=== PATIENT | female | born 1995 | race African-American/Black ===

== ENCOUNTER 2018-11-29 12:05 | Inpatient (IN) | payer OTHER ==
[2018-11-29] VITALS (7 sets, daily range): BP systolic 125–143; BP diastolic 71–87
[~2018-11-29] VITALS: Ht 172.7 cm; Wt 124.8 kg
[~2018-11-29 12:05] MED LIST: BUPIVAC MPF-EPI 0.5%-1:200000 30 ML VIAL. ONE; GLUCAGON,HUMAN RECOMBINANT 1 MG/ML VIAL. ONE; IOHEXOL 300 MG/ML 100ML VIAL. ONE; SURGICEL HEMOSTAT 4X8 EACH. ONE
[2018-11-29] MEDS ORDERED: SEVOFLURANE 61 TO 120 MINUTES. IH ONE (12:08)
[2018-11-29] MEDS ORDERED: ROCURONIUM 50 MG/5 ML VIAL. ONE (12:08)
[2018-11-29] MEDS ORDERED: LIDOCAINE 2% PF 5 ML VIAL. ONE (12:09)
[2018-11-29] MEDS ORDERED: fentaNYL PF VIAL 100 MCG/2 ML VIAL ONE ×3 (12:09→14:15)
[2018-11-29] MEDS ORDERED: MIDAZOLAM HCL/PF 2 MG/2 ML VIAL. ONE (12:09)
[2018-11-29] MEDS ORDERED: DEXAMETHASONE SOD PHOS 20 MG/5 ML VIAL. ONE (12:09)
[2018-11-29] MEDS ORDERED: GLYCOPYRROLATE 1 MG/5 ML VIAL. ONE (12:09)
[2018-11-29] MEDS ORDERED: ONDANSETRON PF 4 MG/2 ML VIAL. ONE (12:09)
[2018-11-29] MEDS ORDERED: NEOSTIGMINE METHYLSULFATE 5 MG/5 ML SYRINGE. ONE (12:09)
[2018-11-29] MEDS ORDERED: KETOROLAC 30 MG/ML INJ FOR OR. INJ ONE (12:09)
[2018-11-29] MEDS ORDERED: PROPOFOL 20 ML IV ONE (12:09)
--- NOTE | 2018-11-29 12:47 | PDOC1 ---
History and Physical Date of Admission Date of Admission DATE: 11/29/18 TIME: 12:42 Identification/Chief Complaint Chief Complaint RUQ pain, nausea Source Source: Chart review, Patient History of Present Illness History of Present Illness Trina is a 23 yo obese female with RUQ pain, nausea and an US showing cholelithiasis She is brought from [facility] ED for cholecystectomy Past Medical History Cardiovascular: No pertinent hx Pulmonary: No pertinent hx Renal/: No pertinent hx Past Surgical History Past Surgical History: No pertinent history Family History Family History: Other (mother had her GB removed at age 16) Social History Smoke: No ALCOHOL: none Drugs: None Current Medications Current Medications Current Medications Sevoflurane (Ultane) 60 ml STK-MED ONCE IH ; Start 11/29/18 at 12:08; Stop at 12:09; Status DC Rocuronium Arnold (Zemuron) 50 mg STK-MED ONCE .ROUTE ; Start 11/29/18 at 12:08 ; Stop 11/29/18 at 12:09; Status DC Fentanyl Citrate (Fentanyl 2ml Vial) 100 mcg STK-MED ONCE .ROUTE ; Start at 12:09; Stop 11/29/18 at 12:10; Status DC Neostigmine Methylsulfate (Neostigmine Methylsulfate) 5 mg STK-MED ONCE .ROUTE ; Start 11/29/18 at 12:09; Stop 11/29/18 at 12:10; Status DC Midazolam HCl (Versed) 2 mg STK-MED ONCE .ROUTE ; Start 11/29/18 at 12:09; Stop 11/29/18 at 12:10; Status DC Glycopyrrolate (Robinul) 1 mg STK-MED ONCE .ROUTE ; Start 11/29/18 at 12:09; Stop 11/29/18 at 12:10; Status DC Propofol 20 ml @ As Directed STK-MED ONCE IV ; Start 11/29/18 at 12:09; Stop 11/29 at 12:10; Status DC Lidocaine HCl (Lidocaine Pf 2% Vial) 5 ml STK-MED ONCE .ROUTE ; Start 11/29/18 at 12:09; Stop 11/29/18 at 12:10; Status DC Dexamethasone Sodium Phosphate (Decadron) 20 mg STK-MED ONCE .ROUTE ; Start 11/29 at 12:09; Stop 11/29/18 at 12:10; Status DC Ondansetron HCl (Zofran) 4 mg STK-MED ONCE .ROUTE ; Start 11/29/18 at 12:09; Stop 11/29/18 at 12:10; Status DC Ketorolac Tromethamine (Toradol For Or Only) 30 mg STK-MED ONCE INJ ; Start 11/29 at 12:09; Stop 11/29/18 at 12:10; Status DC Cefazolin Sodium/ Dextrose 50 ml @ 100 mls/hr 1X PREOP PRN IV PRIOR TO PROCEDURE; Start 11/29/18 at 12:18; Stop 11/30/18 at 12:17 Bupivacaine HCl/ Epinephrine Bitart (Sensorcain-Mpf Epi 0.5%-1:275190) 30 ml STK -MED ONCE .ROUTE ; Start 11/29/18 at 11:29; Stop 11/29/18 at 12:29; Status DC Glucagon (Glucagen) 1 mg STK-MED ONCE .ROUTE ; Start 11/29/18 at 11:29; Stop 11/29 at 12:29; Status DC Iohexol (Omnipaque 300 Mg/ml) 100 ml STK-MED ONCE .ROUTE ; Start 11/29/18 at 11: 29; Stop 11/29/18 at 12:29; Status DC Cellulose (Surgicel Hemostat 4x8) 1 each STK-MED ONCE .ROUTE ; Start 11/29/18 at 11:29; Stop 11/29/18 at 12:30; Status DC Allergies Allergies: Coded Allergies: No Known Drug Allergies (Unverified , 11/29/18) ROS Gastrointestinal: Yes Nausea, Yes Vomiting, Yes Abdominal Pain Physical Exam General: Alert, Oriented X3, No acute distress HEENT: Atraumatic Lungs: Normal air movement Heart: RRR Abdomen: Soft, Other (minimally TTP in the RUQ) Skin: Other (warm, dry) Vitals Vitals Vital Signs Date Time Temp Pulse Resp B/P (MAP) Pulse Ox O2 Delivery O2 Flow Rate FiO2 11/29/18 12:28 98.1 78 15 145/88 98 Room Air 98.1 Labs Labs done at [facility] showed nl CBC, BMP, LFT's and lipase Images Images US done at [facility] is reviewed VTE Prophylaxis Ordered VTE Prophylaxis Devices: Yes VTE Pharmacological Prophylaxi: No Assessment/Plan Assessment/Plan symptomatic cholelithiasis explained risks of l/s kj including but not limited to bleeding, infection, injury to bowel, liver or bile ducts with need for further surgery, possible open procedure or diarrhea post op, also possible persistent sx despite cholecystectomy she will proceed d/w her mother at bedside SAIDA BAUGH MD Nov 29, 2018 12:47
[2018-11-29] MEDS ORDERED: hydrALAZINE 20 MG/ML VIAL. ONE (13:25)
[2018-11-29] MEDS ORDERED: ESMOLOL 100 MG/10 ML VIAL. IVP ONE (13:37)
--- NOTE | 2018-11-29 13:44 | RAD ---
EXAM: Intraoperative cholangiogram. HISTORY: Cholecystectomy. COMPARISON: None. FINDINGS: 3 fluoroscopic images were obtained during an intraoperative cholangiogram. The total fluoroscopy time is 0.16 minutes. There is contrast opacification of the biliary tree and proximal duodenum. There is no evidence of a retained stone or stricture. IMPRESSION: Intraoperative cholangiogram without evidence of a retained stone or stricture. Electronically signed by: Sammie Park MD (11/29/2018 1:41 PM) [place] [id number]
--- NOTE | 2018-11-29 14:10 | PDOC ---
BRIEF OPERATIVE NOTE Date: Nov 29, 2018 Pre-Op Diagnosis symptomatic cholelithiasis Post-Op Diagnosis same, with abdominal adhesions Procedure Performed l/s BIMAL hendrickson Surgeon Juan Carlos [employer] Establishment Manager Keira JIMENEZ Anesthesia Type: General Blood Loss 25cc IV Fluid 1000cc Specimens Obtained GB Findings subacute cholecystitis, multiple stones, omental adhesions in the RUQ, uterine adhesions in the pelvis Complications none SAIDA BAUGH MD Nov 29, 2018 14:10
[2018-11-29] MEDS ORDERED: DEXTROSE 50% 25 GM / 50ML DISP.SYRIN. IV PRN (14:15)
[2018-11-29] MEDS ORDERED: HYDROmorphone 2 MG/ML VIAL IV PRN ×2 (14:15→14:30)
[2018-11-29] MEDS ORDERED: 0.9 % SODIUM CHLORIDE 10 ML DISP.SYRIN. IV PRN (14:15)
[2018-11-29] MEDS ORDERED: oxyCODONE/APAP 5/325 1 TAB TABLET PO PRN (14:15)
[2018-11-29] MEDS ORDERED: ONDANSETRON PF 4 MG/2 ML VIAL. IV PRN ×2 (14:15→14:30)
[2018-11-29] MEDS ORDERED: diphenhydrAMINE HCL 25 MG CAPSULE PO PRN (14:15)
[2018-11-29] MEDS ORDERED: PROCHLORPERAZINE 10 MG/2 ML VIAL. ONE (14:16)
[2018-11-29] MEDS: fentaNYL PF VIAL 100 MCG/2 ML VIAL IV PRN ×2 (14:23→14:57)
[2018-11-29] MEDS: IV RINGERS,LACTATED 1000ML 1,000 ML IV SCH ×2 (14:24→14:26)
[2018-11-29] MEDS ORDERED: fentaNYL PF VIAL 100 MCG/2 ML VIAL IV PRN (14:30)
[2018-11-29] MEDS ORDERED: PROCHLORPERAZINE 10 MG/2 ML VIAL. IV PRN (14:30)
[2018-11-29] MEDS ORDERED: LIDOCAINE 1% PF 2 ML VIAL. ID PRN (14:30)
[2018-11-29] MEDS ORDERED: MORPHINE SULFATE 2 MG/ML VIAL. IV PRN (14:30)
[2018-11-29] MEDS: POTASSIUM CL 20MEQ-0.45% NACL 1,000 ML IV SCH (15:18)
--- NOTE | 2018-11-29 17:32 | OP ---
DATE OF SURGERY: 11/29/2018 PREOPERATIVE DIAGNOSIS: Symptomatic cholelithiasis. POSTOPERATIVE DIAGNOSIS: Symptomatic cholelithiasis with abdominal adhesions. PROCEDURES: Laparoscopic cholecystectomy with cholangiogram, lysis of adhesions. SURGEON: Andrea Baugh MD [employer] MEMBER: BARBARA Harmon ANESTHESIA: General endotracheal. ESTIMATED BLOOD LOSS: 25 mL. IV FLUIDS: 1 liter. INDICATIONS: The patient is a 23-year-old obese female with epigastric and right upper quadrant pain. Ultrasound shows stones. She is brought for cholecystectomy. OPERATIVE FINDINGS: The liver was generous, smooth, and sharp, gallbladder had multiple stones. Cholangiograms were normal. There were omental adhesions in the right upper quadrant to the abdominal wall, post-C section uterine adhesions in the pelvis. DESCRIPTION OF PROCEDURE: The patient brought to the operating suite, given a general endotracheal anesthetic and the abdomen prepped and draped in usual sterile fashion. A 5 x 150 mm Visiport was used to safely gain access into the abdominal cavity through the supraumbilical incision. Pneumoperitoneum established. Camera inserted. Inspection carried out with results as noted above. With the table in reverse Trendelenburg rolled to the left, the epigastric and midclavicular, and lateral ports were placed under direct vision. The gallbladder was retracted superolaterally and the cystic duct and artery were exposed. Duct was clipped on the gallbladder side. Cholangiograms were made. These were normal. There was a short cystic duct. In light of this, the catheter was removed and the cystic duct was carefully clipped and divided, taking care to avoid injury or compromise of the common duct. An anterior and posterior branch of the cystic artery were clipped and divided and the gallbladder freed from the bed with cautery dissection and placed in an EndoCatch bag. Table returned to level. A 19-Stateless round David drain brought through the epigastric port out of the lateral port, sewn to the skin with a silk stitch and left in the subhepatic space for postoperative drainage. Gallbladder delivered through the epigastric incision. Epigastric incision closed with interrupted 0 Vicryl suture. Intra-abdominal pressure decreased to 6 cm of water. No bleeding from the epigastric closure or from the midclavicular port after its removal or from the drain site. Abdomen decompressed, camera removed, no bleeding seen. Skin incisions closed with subcuticular 4-0 Monocryl. Steri-Strips and sterile dressings applied. The patient awakened from her anesthetic and taken to the recovery room in satisfactory condition. ANDREA BAUGH MD DR: CRUZITO/lashawn JOB#: [id number] / [id number]
[2018-11-29] MEDS: oxyCODONE/APAP 5/325 1 TAB TABLET PO PRN (21:26)
[2018-11-29] MEDS: DOCUSATE SODIUM 100 MG CAPSULE. PO SCH (21:27)
[2018-11-30] MEDS: POTASSIUM CL 20MEQ-0.45% NACL 1,000 ML IV SCH ×2 (01:00→11:00)
[2018-11-30] MEDS: oxyCODONE/APAP 5/325 1 TAB TABLET PO PRN ×2 (01:26→07:15)
[2018-11-30 03:00] VITALS: BP 135/69
[2018-11-30 07:00] VITALS: BP 124/86
[2018-11-30] MEDS ORDERED: ENOXAPARIN 40 MG/0.4 ML SYRINGE. SQ SCH (09:00)
[2018-11-30] MEDS: DOCUSATE SODIUM 100 MG CAPSULE. PO SCH (09:17)
--- NOTE | 2018-11-30 09:59 | NUR ---
SW following for discharge planning. Discussed with RN, pt from home. RN advised no SW needs and anticipates pt could possibly discharge home today with self care.
[2018-11-30 11:00] VITALS: BP 148/67
--- NOTE | 2018-11-30 11:20 | DISCH ---
DISCHARGE INSTRUCTIONS Condition on Discharge Condition on Discharge: Stable Activity After Discharge Activity Instructions for Disc: Activity as tolerated, Avoid exertion Lifting Instructions after Dis: No heavy lifting Driving Instructions after Dis: Do not drive (2-3 days) Diet after Discharge Diet after Discharge: Regular Wound Incision Care Other wound/incision instructi: ramonita enciso Follow-Up Follow Up With: Juan Carlos in [place] office 12/08 SAIDA BAUGH MD Nov 30, 2018 11:20
--- NOTE | 2018-11-30 11:22 | PDOC3 ---
Discharge Summary Visit Information Date of Admission: Nov 29, 2018 Date of Discharge: Nov 30, 2018 Admitting Diagnosis Comment: symptomatic cholelithiasis obesity Final Diagnosis same Brief Hospital Course Allergies Allergies Coded Allergies Type Severity Reaction Last Updated Verified No Known Drug Allergies 11/29/18 No Vital Signs Vital Signs Date Time Temp Pulse Resp B/P (MAP) Pulse Ox O2 Delivery O2 Flow Rate FiO2 11/30/18 11:00 98.3 87 18 148/67 (94) 99 Room Air 98.3 11/29/18 14:39 10 Lab Results see record Brief Hospital Course Ms. Kimble is a 23 old female who presented with symptomatic cholecystitis Discharge Information Condition at Discharge: Improved Follow Up: As Needed Scheduled Info (No Known Medications Prior To Admisstion) Each, 1 EACH [facility] DAILY for No home meds, (Reported) Entered as Reported by: BACILIO MAC on 11/29/181310 Last Action: New Order on 11/29/181310 by SAIDA REYES MD Nov 30, 2018 11:22
--- NOTE | 2018-11-30 12:54 | NUR ---
Discharge instructions and belongings reviewed with patient, verbalized understanding. Patient was escorted out of hospital via wheelchair by Maura COTA accompanied by her sister.
--- NOTE | 2018-11-30 18:06 | PATHOLOGY ---
[facility] Accession Number: [id number] . 01 Material submitted: . gallbladder - GALLBLADDER . 01 Clinical history: . Cholelithiasis (symptomatic) . 02 Diagnosis: Gallbladder, laparoscopic cholecystectomy: - Cholelithiasis. - Chronic cholecystitis. - Reactive changes of gallbladder neck lymph node with focal eosinophil infiltration. LBQ/11/30/2018 . 02 Comment: There is no evidence of malignancy. (JPM/db; 11/30/2018) . 02 Electronically signed: . Dave Bates MD, Pathologist NPI- [id number] . 01 Gross description: . The specimen is received in formalin, labeled "Lately, Trina, gallbladder", is an intact gallbladder measuring 13.2 x 2.4 x 2.2 cm with abundantly attached smooth, glistening, yellow adipose tissue. Within the cystic neck region there is a meeks-pink, rubbery lymph node measuring 1.0 x 0.7 x 0.6 cm. The cystic duct is impacted by a calculus and is dilated. The gallbladder mucosa is meeks-pink, partially effaced, and appears trabeculated. Within the lumen there are multiple multifaceted to irregular, green-yellow calculi measuring 3.8 x 2.4 x 1.2 cm in aggregate. The wall is fibrous and has an average thickness of 0.2 cm. No discrete masses are identified. Roller Printer tissue is submitted in A1. ([facility]; 11/29/2018) SHS/SHS . 02 Pathologist provided ICD-10: K80.10 . 02 CPT . 600449 Specimen Comment: A courtesy copy of this report has been sent to Specimen Comment: [phone]. Specimen Comment: Report sent to Performed at: 01 [facility] [place] [id number] [facility] [address], [place], [place] [id number] MD Nick Lamb MD Phone: [phone] Performed at: 02 [facility] [address], [place] [id number] MD Dave Bates MD Phone: [phone]
== END 2018-11-30 12:58 | disposition home or self-care (01) | DRG 418 ==
LOC: 4 NORTH 12:05
PROVIDERS: ADMIT Surgery; ATTEND Surgery
PROC: BF101ZZ Fluoroscopy of Bile Ducts using Low Osmolar Contrast (ICD-10-PCS; 2018-11-29)
PROC: 0FT44ZZ Resection of Gallbladder, Percutaneous Endoscopic Approach (ICD-10-PCS; principal; 2018-11-29 13:00)
DX: K80.10 Calculus of gallbladder with chronic cholecystitis without obstruction (principal); Z68.41 Body mass index [BMI] 40.0-44.9, adult; E66.9 Obesity, unspecified; Z79.899 Other long term (current) drug therapy; K66.0 Peritoneal adhesions (postprocedural) (postinfection)
CPT/HCPCS: 74300; 88304; A7015; J0360; J0696; J0780; J1100; J1170; J1610; J1885; J2001; J2250; J2405; J2704; J2710; J3010; J3490; J7030; J7120; Q9967